=== PATIENT | male | born 1965 | race American Indian/Alaskan Native ===

== ENCOUNTER 2020-06-21 07:20 | Day surgery (SDC) | payer OTHER ==
[~2020-06-21 07:20] MED LIST: SODIUM CHLORIDE 0.9% 1000 ML 1,000 ML IV SCH
--- NOTE | 2020-06-21 09:39 | Anesthesia Day of Surgery ---
Anesthesia Day of Surgery - Day of Surgery Patient Examined: Yes Patient H&P Reviewed: Yes Patient is NPO: Yes
--- NOTE | 2020-06-21 09:39 | Anesthesia Day of Surgery ---
Anesthesia Day of Surgery - Day of Surgery Patient Examined: Yes Patient H&P Reviewed: Yes Patient is NPO: Yes
--- NOTE | 2020-06-21 09:40 | Anesthesia Consultation ---
Anesthesia Consult and Med Hx Date of service: 06/21/20 - Airway Anesthetic Teeth Evaluation: Good ROM Head & Neck: Adequate Mental/Hyoid Distance: Adequate Mallampati Class: Class III Intubation Access Assessment: Probably Good - Pre-Operative Health Status ASA Pre-Surgery Classification: ASA3 Proposed Anesthetic Plan: MAC - Pulmonary Hx Respiratory Symptoms: No (+2FS) Hx Sleep Apnea: Yes - Cardiovascular System Hx Hypertension: Yes (Pt reports negative cardiac w/u) - Central Nervous System CVA: Yes (TIA 2015) - Endocrine Hx Renal Disease: No Hx Non-Insulin Dependent Diabetes: No Hx Thyroid Disease: No - Hematic Hx Sickle Cell Disease: No - Other Systems Hx Obesity: Yes
--- NOTE | 2020-06-21 09:45 | Discharge Summary ---
Providers - Providers Date of Admission: 06/21/20 Date of discharge: 06/21/20 Attending physician: ALEX TORRES MD Primary care physician: NICKIE ALEJANDRO Hospitalization Reason for admission: pre-op planning EGD for bariatric surgery Condition: Good Procedures: EGD Hospital course: Pt presented for a pre-op EGD as part of planning for up coming bariatric surgery. Procedure was uneventful and pt recovered well and was discharged to home. Disposition: DC- TO HOME OR SELFCARE Core Measure Documentation - Palliative Care Palliative Care/ Comfort Measures: Not Applicable - Core Measures Any of the following diagnoses?: none Exam - Physical Exam Narrative exam: unchanged from pre-op - Constitutional Vitals: Temp Pulse Resp BP Pulse Ox 99.0 F 77 16 138/74 97 06/21/20 08:40 06/21/20 08:40 06/21/20 08:40 06/21/20 08:40 06/21/20 08:40 Plan Activity: advance as tolerated Diet: clear liquids Follow up with: NICKIE ALEJANDRO MD [Primary Care Provider] - 7 Days
--- NOTE | 2020-06-21 09:59 | Operative Report ---
Operative Report Operative Report: DATE: 06/21/20 SURGERY: Upper endoscopy. SURGEON: Amanda Charles M.D. PROCEDURE: EGD with biopsy PRE OP DX: morbid obesity, GERD, hx of gastric banding POST OP DX: morbid obesity, GERD, hx of gastric banding TYPE OF ANESTHESIA: MAC. ESTIMATED BLOOD LOSS: None. COMPLICATIONS: None. SPECIMENS REMOVED: antral biopsy FINDINGS: 1. Normal banded gastric anatomy 2. hiatal hernia 3. antral gastritis INDICATIONS:INDICATION FOR PROCEDURE: Patient is a 54-year-old male with a long history of morbid obesity. He has a hx of gastric banding and increased reflux. He is having EGD to evaluate his stomach anatomy prior to planning switching to another bariatric procedure. PROCEDURE DETAILS: After consent was reviewed, patient was taken back to the operating room where patient was placed in the left lateral decubitus position and a bite block was placed in the mouth. After a time-out was called, MAC anesthesia was initiated. I then passed the endoscope into his oropharynx, into her esophagus, visualized the entire esophagus, which was all within normal limits. Z-line was noted to about 35cm from incisors. An approximately 2cm hiatal hernia was appreciated while traversing into the stomach. There was an expected proximal gastric narrowing from external compression from the gastric band. I then visualized the stomach and the first portion of the duodenum and there were no abnormalities I could clearly visualize. A cold forceps biopsy of the antrum was taken and will be sent to pathology to evaluate for H.pylori. I then retroflexed the scope in the stomach and visualized the underside of the band. There were no signs of band erosion or malposition. I then desufflated the stomach and removed the endoscope. Patient tolerated procedure well and was transferred to recovery room in good and stable condition.
[2020-06-21] MEDS ORDERED: LIDOCAINE MPF (2%) 20 MG/1 ML VIAL 5 ML ONE (10:14)
[2020-06-21] MEDS ORDERED: propofoL 200 MG/20 ML VIAL IV ONE ×2 (10:14→10:22)
--- NOTE | 2020-06-21 11:00 | Post Anesthesia Evaluation ---
- Post Anesthesia Evaluation Patient Participated: Yes Airway Patent: Yes Stable Respiratory Function: Yes Nausea/Vomiting: No Temp > 96.8F: Yes Pain Manageable: Yes Adequeate Hydration: Yes Anesthesia Complications: No Block Receding Appropriately: Not Applicable Patient on Ventilator: No
[2020-06-21 19:18] VITALS: BP 138/76
== END 2020-06-21 07:21 | disposition home or self-care (01) ==
LOC: GIO 07:20
PROVIDERS: ATTEND Surgery
DX: K21.9 Gastro-esophageal reflux disease without esophagitis (principal); K44.9 Diaphragmatic hernia without obstruction or gangrene; K29.70 Gastritis, unspecified, without bleeding; E66.01 Morbid (severe) obesity due to excess calories; I10 Essential (primary) hypertension; G47.30 Sleep apnea, unspecified; Z98.890 Other specified postprocedural states; Z68.43 Body mass index [BMI] 50.0-59.9, adult; Z79.899 Other long term (current) drug therapy; Z86.73 Personal history of transient ischemic attack (TIA), and cerebral infarction without residual deficits
CPT/HCPCS: 43239; 88305; 88342; J2704; J7030